=== PATIENT | female | born 1990 | race Two or more races ===

== ENCOUNTER 2021-01-05 22:00 | Emergency (ER) | payer OTHER ==
[~2021-01-05] VITALS: Ht 162.6 cm; Wt 63.5 kg
[2021-01-05] MEDS ORDERED: PRENATAL + DHA1 EAC1 PO (22:15)
[2021-01-05] MEDS ORDERED: MACRODANTIN100 M1 PO (22:15)
[2021-01-06] MEDS ORDERED: NAPROXEN500 MG PO (01:25)
== END 2021-01-06 03:07 | disposition home or self-care (01) ==
LOC: ER 22:00
DX: R51.9 Headache, unspecified (principal); Z03.818 Encounter for observation for suspected exposure to other biological agents ruled out

== ENCOUNTER 2021-03-24 18:20 | Outpatient (CLI) | payer OTHER ==
[~2021-03-24 18:20] MED LIST: MACRODANTIN100 M1 PO; NAPROXEN500 MG PO; PRENATAL + DHA1 EAC1 PO
== END 2021-03-24 18:50 | disposition home or self-care (01) ==
LOC: NST 18:20
PROVIDERS: ATTEND Obstetrics & Gynecology Maternal & Fetal Medicine
DX: Z34.83 Encounter for supervision of other normal pregnancy, third trimester (principal)

== ENCOUNTER 2021-06-30 09:06 | Inpatient (IN) | payer OTHER ==
[~2021-06-30] VITALS: Ht 152.4 cm; Wt 75.3 kg
[2021-07-03] MEDS ORDERED: OXYC1TAB9 PO (07:47)
[2021-07-03] MEDS ORDERED: KETO10TA2 PO (07:47)
== END 2021-07-03 10:02 | disposition home or self-care (01) | DRG 788 ==
LOC: LDR 09:06 → SURG-SUITE 09:06 → SURH 07-19 12:59
PROVIDERS: ADMIT Obstetrics & Gynecology Maternal & Fetal Medicine; ATTEND Obstetrics & Gynecology Maternal & Fetal Medicine
PROC: 4A1HXCZ Monitoring of Products of Conception, Cardiac Rate, External Approach (ICD-10-PCS; 2021-06-30)
PROC: 10D00Z1 Extraction of Products of Conception, Low, Open Approach (ICD-10-PCS; principal; 2021-06-30 17:00)
DX: O33.8 Maternal care for disproportion of other origin (principal); Z3A.38 38 weeks gestation of pregnancy; Z37.0 Single live birth; Z20.822 Contact with and (suspected) exposure to COVID-19